=== PATIENT | male | born 1990 | race Caucasian/White ===

== ENCOUNTER 2018-04-03 13:34 | Emergency (ER) | payer BC ==
[~2018-04-03] VITALS: Ht 180.3 cm; Wt 67.3 kg
[2018-04-03 13:35] VITALS: TEMP 98
[2018-04-03 15:41] VITALS: BP 109/79; PULSE 94
== END 2018-04-03 15:51 | disposition home or self-care (01) ==
LOC: COL.ER 13:34
DX: S62.502A Fracture of unspecified phalanx of left thumb, initial encounter for closed fracture (principal); S50.01XA Contusion of right elbow, initial encounter; V00.138A Other skateboard accident, initial encounter; Y92.410 Unspecified street and highway as the place of occurrence of the external cause